=== PATIENT | male | born 1985 | race Asian ===

== ENCOUNTER 2020-02-09 18:42 | Emergency (ER) | payer OTHER ==
[~2020-02-09] VITALS: Ht 175.3 cm; Wt 75.0 kg
[~2020-02-09 18:42] MED LIST: CEPH500 PO; TYL3 PO
[2020-02-09 18:58] VITALS: BP 126/87
== END 2020-02-09 19:13 | disposition home or self-care (01) ==
LOC: EMS 18:42
DX: Z20.828 Contact with and (suspected) exposure to other viral communicable diseases (principal)
CPT/HCPCS: 87635

== ENCOUNTER 2020-03-19 05:25 | Emergency (ER) | payer OTHER ==
[~2020-03-19] VITALS: Ht 182.9 cm; Wt 75.0 kg
[2020-03-19 05:26] VITALS: BP 137/74
== END 2020-03-19 05:35 | disposition home or self-care (01) ==
LOC: EMS 05:25
DX: Z03.818 Encounter for observation for suspected exposure to other biological agents ruled out (principal)
CPT/HCPCS: 99283; U0003

== ENCOUNTER → 2020-06-12 | Outpatient (CLI) | payer OTHER | END | disposition home or self-care (01) | LOC: LABMN 21:12 | DX: Z20.828 Contact with and (suspected) exposure to other viral communicable diseases (principal) | CPT/HCPCS: 87426 ==

== ENCOUNTER 2020-08-02 14:53 | Emergency (ER) | payer OTHER ==
[~2020-08-02] VITALS: Ht 175.3 cm; Wt 75.0 kg
[2020-08-02 14:57] VITALS: BP 135/74
== END 2020-08-02 16:09 | disposition home or self-care (01) ==
LOC: EMS 14:53
DX: Z20.828 Contact with and (suspected) exposure to other viral communicable diseases (principal); Z91.013 Allergy to seafood
CPT/HCPCS: 99283; U0003

== ENCOUNTER → 2020-09-06 | Outpatient (CLI) | payer OTHER | END | disposition home or self-care (01) | LOC: LABMN 07:29 | DX: U07.1 COVID-19 (principal) | CPT/HCPCS: U0003 ==